=== PATIENT | male | born 1945 | race Caucasian/White ===

== ENCOUNTER → 2023-01-03 12:40 | Outpatient (REF) | payer SELFPAY ==
[2023-01-04 18:52] LABS: Hepatitis B Surface Antigen Negative (Negative)
[2023-01-04 19:02] LABS: HIV Combo Negative (Negative)
[2023-01-04 19:10] LABS: Hepatitis C Antibody Negative (Negative)
== END ==
LOC: CLAB 12:40
PROVIDERS: ATTENDING PHYSICIAN Family Medicine
DX: Z20.5 Contact with and (suspected) exposure to viral hepatitis (principal)
CPT/HCPCS: 36415; 86803; 87340; 87389

== ENCOUNTER 2024-07-17 12:45 | Emergency (ER) | payer OTHER, SELFPAY ==
[2024-07-17 12:46] VITALS: BP 182/96
[2024-07-17 13:00] VITALS: BP 170/82
[2024-07-17 13:01] VITALS: BMI 28.2
--- NOTE | 2024-07-17 13:09 | ED.GENMED ---
History of Present Illness
General
Chief Complaint: Abdominal Pain
Time Seen by Provider: 07/17/24 12:50
History of Present Illness
History of Present Illness:
79-year-old male presents the emergency department for evaluation of left lower quadrant abdominal pain. Pain has been present for the past 7 days waxing and waning in nature. Began after a forceful bout of diarrhea however since that time is not
had any bowel movements. The pain does seem to alleviate after passing flatus. No prior abdominal surgeries. No fevers, chills, night sweats, nausea, or vomiting.
Review of Systems
Review of Systems
Allergies reviewed?: Yes
All Other Systems: ROS reviewed and negative except as documented in HPI and ROS
Phy Exam
Physical Exam
Physical Exam:
GEN: Well appearing, NAD, WDWN
HEENT: Oral mucosa moist, no scleral icterus
Cardiac: Regular rate
Lung: No respiratory distress, no tachypnea
Abdomen: Soft, mild left lower quadrant tenderness, no rigidity or peritoneal signs
MSK: No gross deformity or injuries
Skin: Good color, no pallor or jaundice, no rashes
Neuro: AO x3, moves all extremities freely
Psych: Calm, cooperative
Course
Orders/Labs/Results
Orders:
Orders
07/17/24 13:01
CT Abd/Pel (IV only)-DH only Urgent
Comment:
Reason For Exam: LLQ pain
07/17/24 13:13
Complete Blood Count/With Diff Urgent
Comprehensive Metabolic Panel Urgent
07/17/24 14:56
Urinalysis Reflex To Culture Urgent
Date Specimen was Collected: 07/17/24
Time Specimen was Collected: 14:56
Abnormal Lab Results
07/17/24
13:13
RBC 4.49 L 10^6/uL
(4.70-6.10)
BUN 29 H mg/dl
(9-20)
Creatinine 1.4 H mg/dL
(0.7-1.3)
Glucose 209 H mg/dl
(70-99)
07/17/24 13:13
07/17/24 13:13
Vital Signs
Initial and Last Documented VS:
Initial Vital Signs
Temp Pulse Resp BP Pulse Ox
97.3 F 87 18 182/96 97
07/17/24 12:46 07/17/24 12:46 07/17/24 12:46 07/17/24 12:46 07/17/24 12:46
Last Documented Vital Signs
Temp Pulse Resp BP Pulse Ox
97 F 62 20 149/65 97
07/17/24 13:01 07/17/24 14:00 07/17/24 14:00 07/17/24 14:00 07/17/24 14:15
MDM/Problems Addressed
MDM/Problems Addressed:
Imaging reveals epiploic appendagitis. He is noted to have severe diverticulosis but no evidence for diverticulitis. Discussed supportive care for self-limited condition. Recommend stool softeners and laxatives for constipation
*Critical Care Note
Total Time (30-74mins, 75-104mins- exclusive of procedures): Not Applicable
ED Attending Note
-
Portions of this chart may have been created with voice recognition software.� Occasional wrong word or��sound alike� substitutions may have occurred due to the inherent limitations of voice recognition software.
Discharge Plan
Departure
Patient Disposition: Home (Routine Discharge)
Date of Disposition: 07/17/24
Time of Disposition: 15:09
Patient with high blood pressure during this ER visit?: No
Discharge Problem:
Epiploic appendagitis
Instructions: Abdominal Pain
Referrals:
Socrates Alvarado, DO [Family Provider] -
Activity Restrictions/Additional Instructions:
This condition is benign and will resolve on its own usually within a week to 10 days. Take [id number] Tylenol and ibuprofen as needed for pain.
Interventions
Interventions:
*Risk Screen - Suicide Last Done: 07/17/24 12:46
*General Assessment Last Done: 07/17/24 12:46
*Neglect/Abuse Screening Last Done: 07/17/24 12:46
*ED- Fall Risk Assessment Last Done: 07/17/24 13:01
*ED COVID-19 Vaccine History Last Done: 07/17/24 13:01
AV-Ylpaql-Pfgxrgacqh Assessment Last Done: 07/17/24 13:01
Discharge Date and Time
Print Language: MAORI
[2024-07-17 13:27] LABS: % Basophils 0.5 % (0-2); % Eosinophils 2.2 % (0-6); % Immature Granulocytes 0.3 % (0-0.5); % Lymphocytes 21.4 % (20.5-51.1); % Monocytes 6.1 % (1.7-9.3); % Neutrophils 69.5 % (42.2-75.2); Absolute Eosinophils 0.2 10^3/uL (0-0.7); Absolute Lymphocytes 1.6 10^3/uL (1.2-3.4); Absolute Monocytes 0.5 10^3/uL (0.1-0.6); Absolute Neutrophils 5.3 10^3/uL (1.4-6.5); Hematocrit 40.4 % (39.0-52.0); Hemoglobin 13.8 g/dL (13.0-18.0); Mean Corp Hgb Conc. 34.2 g/dL (33.0-37.0); Mean Corpuscular Hgb 30.7 pg (27.0-31.0); Mean Platelet Volume 9.5 fL (7.4-10.4); Nucleated Red Blood Cells % 0 % (-); Platelet Count 243 10^3/uL (130-400); Red Blood Cell Count 4.49 10^6/uL (4.70-6.10); Red Cell Dist. Width 11.9 % (11.5-14.5); White Blood Cell Count 7.6 10^3/uL (4.8-10.8)
[2024-07-17 13:37] LABS: ALT (SGPT) 16 U/L (0-50); AST (SGOT) 18 U/L (17-59); Albumin 4.6 g/dl (3.5-5.0); Alkaline Phosphatase 64 U/L (38-126); Blood Urea Nitrogen 29 mg/dl (9-20); Calcium 9.7 mg/dl (8.4-10.2); Carbon Dioxide 24 mmol/L (22-30); Chloride 106 mmol/L (98-107); Estimated Creatinine Clearance 41 ml/min; Glucose 209 mg/dl (70-99); Sodium 139 mmol/L (135-145); Total Bilirubin 0.4 mg/dl (0.2-1.3); Total Protein 7.6 g/dl (6.3-8.2); eGFR 50.49
[2024-07-17 14:00] VITALS: BP 149/65
[2024-07-17 15:07] LABS: Urine Albumin Negative (Neg - Trace); Urine Bilirubin Negative (Negative); Urine Character Clear (Clear); Urine Color Yellow; Urine Glucose Negative (Negative); Urine Ketone Negative (Negative); Urine Leukocyte Negative (Negative); Urine Nitrite Negative (Negative); Urine Occult Blood Negative (Negative); Urine Specific Gravity 1.015 (<1.030); Urine Urobilinogen Negative (Neg - 1+)
[2024-07-17 15:18] VITALS: BP 149/65
== END 2024-07-17 15:19 | disposition home or self-care (01) ==
LOC: EMR 12:45
PROVIDERS: Physician Assistant; EMERGENCY PHYSICIAN Emergency Medicine; FAMILY PHYSICIAN Family Medicine
DX: K63.89 Other specified diseases of intestine (principal)
CPT/HCPCS: 99284; 74177; 80053; 81003; 85025; Q9967

== ENCOUNTER → 2024-09-15 10:07 | Outpatient (REF) | payer OTHER, SELFPAY | LOC: HWRAD 10:07 | PROVIDERS: ATTENDING PHYSICIAN Family Medicine | DX: M25.562 Pain in left knee (principal) | CPT/HCPCS: 73560 ==

== ENCOUNTER → 2025-01-08 12:50 | Outpatient (REF) | payer OTHER, SELFPAY | LOC: PAVMRI 12:50 | PROVIDERS: ATTENDING PHYSICIAN Student in an Organized Health Care Education/Training Program; FAMILY PHYSICIAN Family Medicine | DX: M17.11 Unilateral primary osteoarthritis, right knee (principal) | CPT/HCPCS: 73721 ==